=== PATIENT | female | born 1960 | race Two or more races ===

== ENCOUNTER 2023-02-15 21:27 | Inpatient (IN) | payer MEDICAID ==
[~2023-02-15] VITALS: Ht 170.2 cm; Wt 109.1 kg
[~2023-02-15 21:27] MED LIST: CARV6.253; DEXL60CA3 PO; FLUT12AE9; FLUT16SP2 BOTHNARES; GUAI120L55 PO; ONDA-103 PO; PRAV20TA4
[2023-02-15 22:08] LABS: BASOPHILS # (AUTO) 0.1 X10'3 (0-0.2); BASOPHILS % (AUTO) 0.5 % (0-1); EOSINOPHILS # (AUTO) 0.1 X10'3 (0-0.9); EOSINOPHILS % (AUTO) 0.5 % (0-6); HEMATOCRIT 43.9 % (35.0-45.0); HEMOGLOBIN 14.6 g/dl (12.0-16.0); LYMPHOCYTES # (AUTO) 1.5 X10'3 (1.1-4.8); LYMPHOCYTES % (AUTO) 11.5 % (21-51); MEAN CORPUSCULAR HEMOGLOBIN 29.4 PG (27.0-31.0); MEAN CORPUSCULAR HGB CONC 33.4 g/dL (33.0-36.5); MEAN CORPUSCULAR VOLUME 88.3 FL (78-98); MEAN PLATELET VOLUME 7.6 FL (7.4-10.4); MONOCYTES # (AUTO) 0.9 X10'3 (0-0.9); MONOCYTES % (AUTO) 6.9 % (2-12); NEUTROPHILS # (AUTO) 10.2 X10'3 (1.8-7.7); NEUTROPHILS % (AUTO) 80.6 % (42-75); PLATELET COUNT 217 X10'3 (140-440); RED BLOOD COUNT 4.97 X10'6 (4.20-5.60); RED CELL DISTRIBUTION WIDTH 13.7 % (11.5-14.5); WHITE BLOOD COUNT 12.6 X10'3 (4.5-11.0)
[2023-02-15 22:19] LABS: ALANINE AMINOTRANSFERASE 30 U/L (12-78); ALBUMIN 3.4 G/DL (3.4-5.0); ALKALINE PHOSPHATASE 108 IU/L (46-116); ANION GAP 7 (8-16); ASPARTATE AMINO TRANSFERASE 20 U/L (10-37); BILIRUBIN,TOTAL 0.4 MG/DL (0.1-1.0); BLOOD UREA NITROGEN 16 MG/DL (7-18); BUN/CREATININE RATIO 18.2 (10.0-20.0); CALCIUM 9.1 MG/DL (8.5-10.1); CHLORIDE 103 MMOL/L (99-107); CREATININE 0.88 MG/DL (0.40-0.90); GLUCOSE 129 MG/DL (70-104); POTASSIUM 4.2 MMOL/L (3.5-5.1); SODIUM 139 MMOL/L (135-145); TOTAL CARBON DIOXIDE 28.6 MMOL/L (24-32); TOTAL PROTEIN 6.8 G/DL (6.4-8.2); eCRCL 64 ML/MIN; eGFR 65 ML/MIN
[2023-02-15] MEDS ORDERED: methylPREDNISolone sod succ 125mg/2ml vial IV ONE (22:45)
[2023-02-15] MEDS ORDERED: albuterol 2.5 MG/3 ML nebule NEB ONE (22:45)
[2023-02-15] MEDS ORDERED: LORazepam 2 mg/ml vial IV ONE (22:45)
[2023-02-16] MEDS ORDERED: ondansetron/PF 4mg/2ml inj IV ONE ×2 (00:10→04:50)
[2023-02-16 01:02] VITALS: PULSE 109; RESP 22; O2SAT 94
[2023-02-16 01:12] VITALS: PULSE 111; RESP 20; O2SAT 99
[2023-02-16] MEDS ORDERED: morphine 4 MG/ML inj SYRINge IV ONE (04:50)
[2023-02-16] MEDS ORDERED: aspirin 325mg tablet PO ONE (04:50)
[2023-02-16] MEDS ORDERED: nitroGLYCERIN 1gm ointment UD TP ONE (04:50)
--- NOTE | 2023-02-16 07:25 | NUR ---
PT UP AT BEDSIDE COMODE INDEPENDENTLY. AND BACK INTO BED. PT SOB ON EXERTION. SHE STATED SHE IS "WORRIED ABOUT HER CONDITION AND THAT ITS NEVER BEEN THIS HARD TO BREATHE". SHE IS CURRENTLY ON 2L NC WITH RESPIRATIONS AT 14 AND 95% O2 SAT WHILE TALKING ON THE PHONE WITH FAMILY.
[2023-02-16 09:58] LABS: D-DIMER 1.97 MG/L FEU (0-0.50)
[2023-02-16] MEDS ORDERED: mag hydrox/Alum hydrox/simeth 30ml oral suspension PO PRN (10:05)
[2023-02-16] MEDS ORDERED: potassium Cl 40MEQ/1/2NS 520ml 520 ML IV PRN (10:05)
[2023-02-16] MEDS ORDERED: normal saline 1000ml 1,000 ML IV SCH (10:05)
[2023-02-16] MEDS ORDERED: magnesium hydroxide 30ml (MOM) UD suspension PO PRN (10:05)
[2023-02-16] MEDS ORDERED: ondansetron/PF 4mg/2ml inj IV PRN (10:05)
[2023-02-16] MEDS ORDERED: magnesium 4gm in 100ml NS 100 ML IV PRN (10:05)
[2023-02-16] MEDS ORDERED: morphine 2 MG/ML inj. syringe IV PRN (10:05)
[2023-02-16] MEDS ORDERED: HYDROcodone/acetaminophen 10/325mg tab PO PRN (10:05)
[2023-02-16] MEDS ORDERED: magnesium Cl slow-release 64mg tablet PO PRN (10:05)
[2023-02-16] MEDS ORDERED: HYDROcodone/acetaminophen 5mg/325mg tablet PO PRN (10:05)
[2023-02-16] MEDS ORDERED: potassium Cl 20 mEq SR tablet PO PRN ×2 (10:05)
[2023-02-16] MEDS ORDERED: magnesium 2GM in 50ml NS 50 ML IV PRN (10:05)
[2023-02-16] MEDS ORDERED: iohexol 350MG/ML 100ml bottle IV ONE (10:28)
[2023-02-16 11:36] LABS: MAGNESIUM 2.2 MG/DL (1.5-2.4)
[2023-02-16] MEDS: morphine 2 MG/ML inj. syringe IV PRN ×2 (13:09→21:45)
[2023-02-16 14:21] LABS: URINE AMPHETAMINE SCREEN NEGATIVE (Neg); URINE BARBITUATE SCREEN NEGATIVE (Neg); URINE BENZODIAZEPINES SCREEN NEGATIVE (Neg); URINE CANNABINOID SCREEN NEGATIVE (Neg); URINE COCAINE SCREEN NEGATIVE (Neg); URINE METHADONE SCREEN NEGATIVE (Neg); URINE OPIATE SCREEN POSITIVE (Neg); URINE PHENCYCLIDINE SCREEN NEGATIVE (Neg)
--- NOTE | 2023-02-16 15:05 | NUR ---
RESIDENT GAVE A TELEPHONE ORDER FOR A HEART HEALTHY DIET, THIS NURSE WILL INPUT IT.
[2023-02-16] MEDS ORDERED: FLUT12AE9 IH (16:05)
[2023-02-16] MEDS ORDERED: ALBU18HF2 INH (16:09)
[2023-02-16] MEDS ORDERED: ondansetron 4mg rapidly disintigrating tab PO PRN (19:05)
[2023-02-16] MEDS ORDERED: nitroGLYCERIN 0.4mg SUBLingual tab SL PRN (19:20)
[2023-02-16] MEDS ORDERED: metoprolol tartrate 1mg/ml inj IV PRN (19:20)
[2023-02-16] MEDS ORDERED: aminophylline 250mg/10ml inj. IV PRN (19:20)
[2023-02-16] MEDS ORDERED: regadenoson 0.4mg/5ml syringe IV PRN (19:20)
[2023-02-16] MEDS: K and/or MAG REPLACEMENT MC SCH (20:00)
[2023-02-16] MEDS: docusate sod 100mg capsule PO SCH (20:00)
[2023-02-16 21:00] VITALS: BP 115/72; PULSE 99; RESP 16; TEMP 98; O2SAT 96
[2023-02-16] MEDS: budesonide 0.5mg/2ml UD nebule IH SCH (21:00)
[2023-02-16] MEDS: heparin, porcine 5000 units/ml vial SQ SCH (21:44)
[2023-02-16] MEDS ORDERED: CARV6.253 PO (22:37)
[2023-02-16] MEDS ORDERED: LISI5TAB22 PO (22:37)
[2023-02-16] MEDS: albuterol 2.5 MG/3 ML nebule NEB PRN (22:52)
[2023-02-16 22:53] VITALS: PULSE 92; RESP 18; O2SAT 96
[2023-02-16 22:59] VITALS: PULSE 85; RESP 16
[2023-02-17] VITALS (15 sets, daily range): BP systolic 118–166; BP diastolic 44–81; PULSE 91–117; RESP 10–18; TEMP 97.2–98.1; O2SAT 94–97
--- NOTE | 2023-02-17 06:09 | NUR ---
Problems reprioritized. Patient report given, questions answered & plan of care reviewed with Joss YAÑEZ.
--- NOTE | 2023-02-17 06:55 | NUR ---
Patient in room PCU 3018. I have received report from PARI Anthony and had the opportunity to ask questions and assume patient care.
[2023-02-17] MEDS: acetaminophen 325mg tablet PO PRN ×2 (07:41→18:04)
[2023-02-17] MEDS: heparin, porcine 5000 units/ml vial SQ SCH (08:00)
[2023-02-17] MEDS ORDERED: pantoprazole 40mg Tablet.DR PO SCH (08:00)
[2023-02-17] MEDS: K and/or MAG REPLACEMENT MC SCH (08:00)
[2023-02-17] MEDS: docusate sod 100mg capsule PO SCH (08:00)
[2023-02-17 08:48] LABS: BASOPHILS % (AUTO) 0.1 % (0-1); EOSINOPHILS % (AUTO) 0.2 % (0-6); LYMPHOCYTES # (AUTO) 1.8 X10'3 (1.1-4.8); LYMPHOCYTES % (AUTO) 13.5 % (21-51); MEAN CORPUSCULAR HEMOGLOBIN 28.6 PG (27.0-31.0); MEAN CORPUSCULAR HGB CONC 32.5 g/dL (33.0-36.5); MEAN CORPUSCULAR VOLUME 88.2 FL (78-98); MEAN PLATELET VOLUME 7.8 FL (7.4-10.4); MONOCYTES # (AUTO) 0.9 X10'3 (0-0.9); MONOCYTES % (AUTO) 6.6 % (2-12); NEUTROPHILS # (AUTO) 10.9 X10'3 (1.8-7.7); NEUTROPHILS % (AUTO) 79.6 % (42-75); PLATELET COUNT 206 X10'3 (140-440); RED BLOOD COUNT 4.54 X10'6 (4.20-5.60); RED CELL DISTRIBUTION WIDTH 14.1 % (11.5-14.5); WHITE BLOOD COUNT 13.7 X10'3 (4.5-11.0)
[2023-02-17 09:02] LABS: APTT 26 SECONDS (22-32); PROTHROMBIN TIME 10.7 SECONDS (9.0-12.0)
--- NOTE | 2023-02-17 09:08 | NUR ---
Patient down to stress test.
[2023-02-17 09:11] LABS: ALANINE AMINOTRANSFERASE 26 U/L (12-78); ALBUMIN 2.9 G/DL (3.4-5.0); ALBUMIN/GLOBULIN RATIO 0.9 (1.1-1.5); ALKALINE PHOSPHATASE 75 IU/L (46-116); ANION GAP 5 (8-16); ASPARTATE AMINO TRANSFERASE 16 U/L (10-37); BILIRUBIN,TOTAL 0.3 MG/DL (0.1-1.0); BLOOD UREA NITROGEN 21 MG/DL (7-18); BUN/CREATININE RATIO 25.3 (10.0-20.0); CALCIUM 8.6 MG/DL (8.5-10.1); CHLORIDE 106 MMOL/L (99-107); CHOL/HDL RATIO 3.2 (0.00-4.99); CHOLESTEROL 147 MG/DL (0-200); CREATININE 0.83 MG/DL (0.40-0.90); GLUCOSE 107 MG/DL (70-104); HDL CHOLESTEROL 46 MG/DL (35-60); LDL CHOLESTEROL 84 MG/DL (50-100); MAGNESIUM 2.2 MG/DL (1.5-2.4); PHOSPHORUS 2.9 MG/DL (2.3-4.5); POTASSIUM 3.7 MMOL/L (3.5-5.1); SODIUM 141 MMOL/L (135-145); TOTAL CARBON DIOXIDE 29.6 MMOL/L (24-32); TRIGLYCERIDES 75 MG/DL (20-135); eCRCL 67 ML/MIN; eGFR 69 ML/MIN
[2023-02-17] MEDS: budesonide 0.5mg/2ml UD nebule IH SCH (10:51)
--- NOTE | 2023-02-17 11:15 | NUR ---
patient back to room
[2023-02-17] MEDS: morphine 2 MG/ML inj. syringe IV PRN (11:22)
[2023-02-17] MEDS ORDERED: PRED10TA23 PO (13:41)
[2023-02-17] MEDS: albuterol 2.5 MG/3 ML nebule NEB PRN (14:04)
[2023-02-17] MEDS ORDERED: GUAI-647 PO (16:08)
[2023-02-17 16:16] LABS: BILIRUBIN,URINE NEGATIVE (Neg); CLARITY,URINE CLEAR (Clear); COLOR,URINE YELLOW (Yellow); GLUCOSE, URINE NEGATIVE (Neg); KETONES,URINE NEGATIVE (Neg); LEUKOCYTE ESTERASE ,URINE NEGATIVE (Neg); NITRITES, URINE NEGATIVE (Neg); OCCULT BLOOD,URINE TRACE-INTACT (Neg); PROTEIN,URINE NEGATIVE (Neg); UROBILINOGEN,URINE 0.2 E.U/dL (0.2-1.0)
--- NOTE | 2023-02-17 16:22 | NUR ---
Resident Inderjitam in to see patient.
[2023-02-17 16:23] LABS: UA COLLECTION TYPE NON-SPECIFIED
[2023-02-17 16:25] LABS: BACTERIA,URINE NONE SEEN /HPF (Neg); MUCUS STRANDS FEW /LPF (Neg); SQUAMOUS EPITHELIAL CELL,UR FEW /LPF (FEW); WBC,URINE 0-4 /HPF (0-4)
[2023-02-17] MEDS ORDERED: FLUT1DIS INH (16:32)
[2023-02-17] MEDS ORDERED: MONT4TAB70 PO (16:32)
--- NOTE | 2023-02-17 18:34 | NUR ---
Patient alert and oriented in no apparent acute distress. Discussed with patient discharge instructions and new prescriptions. Dr Shelley was in to explain discharge medications as well. Patient verbalizes understanding of teaching and all questions answered. Patient wanted medical records sent to her PCP. patient given medical release form to fill out. Patient ready for dc and waiting for her daughter for ride home.
--- NOTE | 2023-02-17 18:36 | NUR ---
Problems reprioritized. Patient report given, questions answered & plan of care reviewed with PARI Hennessy.
--- NOTE | 2023-02-17 18:37 | NUR ---
Problems reprioritized. Patient report given, questions answered & plan of care reviewed with PARI Hennessy.
== END 2023-02-17 19:05 | disposition home or self-care (01) | DRG 145 ==
LOC: ER 21:27 → ED HOLD 02-16 10:52 → PCU 3S 02-16 20:50
PROVIDERS: ADMIT Family Medicine; ATTEND Family Medicine
PROC: B32T1ZZ Computerized Tomography (CT Scan) of Left Pulmonary Artery using Low Osmolar Contrast (ICD-10-PCS; principal; 2023-02-16)
PROC: B3201ZZ Computerized Tomography (CT Scan) of Thoracic Aorta using Low Osmolar Contrast (ICD-10-PCS; 2023-02-16)
PROC: B32S1ZZ Computerized Tomography (CT Scan) of Right Pulmonary Artery using Low Osmolar Contrast (ICD-10-PCS; 2023-02-16)
PROC: 4A02XM4 Measurement of Cardiac Total Activity, External Approach (ICD-10-PCS; 2023-02-17)
PROC: 3E033HZ Introduction of Radioactive Substance into Peripheral Vein, Percutaneous Approach (ICD-10-PCS; 2023-02-17)
DX: J20.8 Acute bronchitis due to other specified organisms (principal); J96.01 Acute respiratory failure with hypoxia; R65.10 Systemic inflammatory response syndrome (SIRS) of non-infectious origin without acute organ dysfunction; I11.0 Hypertensive heart disease with heart failure; J45.901 Unspecified asthma with (acute) exacerbation; Z20.822 Contact with and (suspected) exposure to COVID-19; I50.9 Heart failure, unspecified; K21.9 Gastro-esophageal reflux disease without esophagitis; R07.9 Chest pain, unspecified; Z88.8 Allergy status to other drugs, medicaments and biological substances; Z90.49 Acquired absence of other specified parts of digestive tract
CPT/HCPCS: 36415; 71045; 71275; 78452; 80053; 80061; 80305; 81001; 83036; 83605; 83735; 83880; 84100; 84132; 84145; 84484; 85025; 85379; 85610; 85730; 87040; 87502; 87503; 87811; 93017; 93306; 94060; 94640; 94760; 99285; A9500; G0378; J1644; J2060; J2270; J2405; J2785; J2930; J3490; J7030; Q9967

== ENCOUNTER 2024-02-12 11:20 | Emergency (ER) | payer MEDICAID ==
[~2024-02-12] VITALS: Ht 170.2 cm; Wt 121.2 kg
[~2024-02-12 11:20] MED LIST changes: +ALBU18HF2 INH; -CARV6.253; +CARV6.253 PO; -FLUT12AE9; -FLUT16SP2 BOTHNARES; +FLUT1DIS INH; -GUAI120L55 PO; +LISI5TAB22 PO; +MONT4TAB70 PO; -PRAV20TA4
[2024-02-12 11:24] VITALS: TEMP 97.3
[2024-02-12 12:23] LABS: BASOPHILS # (AUTO) 0.1 X10'3 (0-0.2); BASOPHILS % (AUTO) 0.7 % (0-1); EOSINOPHILS # (AUTO) 0.1 X10'3 (0-0.9); EOSINOPHILS % (AUTO) 0.7 % (0-6); HEMATOCRIT 48.7 % (35.0-45.0); HEMOGLOBIN 16.3 g/dl (12.0-16.0); LYMPHOCYTES # (AUTO) 1.9 X10'3 (1.1-4.8); LYMPHOCYTES % (AUTO) 22.3 % (21-51); MEAN CORPUSCULAR HGB CONC 33.5 g/dL (33.0-36.5); MEAN CORPUSCULAR VOLUME 89.3 FL (78-98); MEAN PLATELET VOLUME 7.7 FL (7.4-10.4); MONOCYTES # (AUTO) 0.6 X10'3 (0-0.9); MONOCYTES % (AUTO) 7.4 % (2-12); NEUTROPHILS # (AUTO) 5.9 X10'3 (1.8-7.7); NEUTROPHILS % (AUTO) 68.9 % (42-75); PLATELET COUNT 259 X10'3 (140-440); RED BLOOD COUNT 5.45 X10'6 (4.20-5.60); RED CELL DISTRIBUTION WIDTH 13.5 % (11.5-14.5); WHITE BLOOD COUNT 8.6 X10'3 (4.5-11.0)
[2024-02-12 12:28] LABS: ALANINE AMINOTRANSFERASE 43 U/L (12-78); ALBUMIN 3.3 G/DL (3.4-5.0); ALBUMIN/GLOBULIN RATIO 0.9 (1.1-1.5); ALKALINE PHOSPHATASE 114 IU/L (46-116); ANION GAP 5 (8-16); ASPARTATE AMINO TRANSFERASE 35 U/L (10-37); BILIRUBIN,TOTAL 0.6 MG/DL (0.1-1.0); BLOOD UREA NITROGEN 12 MG/DL (7-18); BUN/CREATININE RATIO 13.8 (10.0-20.0); CALCIUM 8.8 MG/DL (8.5-10.1); CHLORIDE 102 MMOL/L (99-107); CREATININE 0.87 MG/DL (0.40-0.90); GLUCOSE 121 MG/DL (70-104); LIPASE 42 U/L (16-77); SODIUM 136 MMOL/L (135-145); TOTAL CARBON DIOXIDE 29.3 MMOL/L (24-32); eCRCL 64 ML/MIN; eGFR 66 ML/MIN
[2024-02-12] MEDS: HYDROmorphone 1 mg/ml syringe IV ONE (12:51)
[2024-02-12] MEDS: pantoprazole 40 MG vial IV STA (12:51)
[2024-02-12] MEDS: ondansetron/PF 4mg/2ml inj IV ONE (12:51)
[2024-02-12 13:10] LABS: BILIRUBIN,URINE NEGATIVE (Neg); CLARITY,URINE CLEAR (Clear); COLOR,URINE YELLOW (Yellow); GLUCOSE, URINE NEGATIVE (Neg); KETONES,URINE NEGATIVE (Neg); LEUKOCYTE ESTERASE ,URINE NEGATIVE (Neg); NITRITES, URINE NEGATIVE (Neg); OCCULT BLOOD,URINE NEGATIVE (Neg); PROTEIN,URINE NEGATIVE (Neg); UROBILINOGEN,URINE 0.2 E.U/dL (0.2-1.0)
[2024-02-12 13:16] LABS: UA COLLECTION TYPE CLN CATCH MIDSTREAM
[2024-02-12] MEDS ORDERED: HYDROmorphone 1 mg/ml syringe IV ONE (14:20)
[2024-02-12 14:32] VITALS: BP 115/79; PULSE 78; RESP 16; O2SAT 99
== END 2024-02-12 14:34 | disposition home or self-care (01) ==
LOC: ER 11:20
DX: R10.13 Epigastric pain (principal); R11.2 Nausea with vomiting, unspecified; K52.89 Other specified noninfective gastroenteritis and colitis; I10 Essential (primary) hypertension; J45.909 Unspecified asthma, uncomplicated; K21.9 Gastro-esophageal reflux disease without esophagitis; F41.9 Anxiety disorder, unspecified; G89.29 Other chronic pain; M54.9 Dorsalgia, unspecified; Z88.8 Allergy status to other drugs, medicaments and biological substances; Z79.899 Other long term (current) drug therapy
CPT/HCPCS: 36415; 80053; 81003; 83690; 85025; 96374; 96375; 99284; J1171; J2405; J2470

== ENCOUNTER 2024-10-28 12:06 | Emergency (ER) | payer MEDICARE, MEDICAID ==
[~2024-10-28] VITALS: Ht 170.2 cm; Wt 122.3 kg
[2024-10-28] MEDS ORDERED: HYDR-3965 PO (12:57)
--- NOTE | 2024-10-28 13:23 | Physician Documentation ---
History of Present Illness ~ Chief Complaint: Headache Stated Complaint: "SHARP PAIN ON SIDE OF HEAD" Time Seen by MD: 12:29 Primary Medical Doctor: OVELMA Mode of Arrival: SHARIFA HPI 64-year-old female presents to the ED with a complaint of left-sided neck pain and had pain along with a headache and ongoing sinus problems. She states she has a history of sinusitis. States that her symptoms recently have been going for more than two weeks now. Reports ongoing congestion headache and nasal discharge. Day of Onset: Oct 28, 2024 Medication Reconciliation Allergies: Coded Allergies: prochlorperazine (Unverified Allergy, Mild, 10/28/24) diazepam (Verified Allergy, Unknown, 02/12/24) Scheduled Albuterol Sulfate (Ventolin Hfa), 2 PUFFS INH Q4HPRN, (Reported) Amox Tr/Potassium Clavulanate (Augmentin 875-125 Tablet), 1 TAB PO Q12H Carvedilol (Carvedilol), 1 TAB PO BID Dexlansoprazole (Dexilant), 1 CAP PO DAILY, (Reported) Fluticasone/Salmeterol (Advair 100-50 Diskus), 2 PUFFS INH Q12H Lisinopril (Lisinopril), 1 TAB PO DAILY, (Reported) Montelukast Sodium (Singulair), 1 TAB PO DAILY Prednisone (Prednisone), 1 TAB PO BID Scheduled PRN Hydrocodone Bit/Acetaminophen 5/325 MG ([place] 5/325 MG), 1 TAB PO BID PRN for pain, (Reported) Ondansetron HCl (Ondansetron HCl), 1 TAB PO DAILY PRN for nausea/vomiting, (Reported) Past Medical History Past Medical History: Hypertension, Asthma, Anxiety Past Surgical History: no surgical history Alcohol Use: None Drug Use: none Lives with: Family Lives In: Home Physical Exam Vital Signs: Temperature: 97.2, Source: Temporal, Heart Rate: 80, Respiratory Rate: 18, BP: 136/78, Pulse Oximetry: 96, Weight: 122.350 Oxygen Flow Rate: 0 Progress Results/Orders Results/Orders Completed Orders - NATHEN SALAMANCA STACKING MACHINE OPERATOR Stat Ekg (10/28/24 ) Vital Signs 10/28/24 10/28/24 10/28/24 12:10 12:55 14:39 Temp 97.2 97.8 Pulse 101 80 70 Resp 20 18 16 B/P (MAP) 141/84 136/78 (97) 144/72 Pulse Ox 94 96 98 O2 Flow Rate 0 Departure Disposition: 01 HOME / SELF CARE / HOMELESS Impression: Primary Impression: Headache Additional Impression: Bacterial sinusitis Condition: Stable Discharge Instructions: Bacterial Conjunctivitis, Adult, Wjan-[id number], Sinus Infection, Adult Referrals: NO PRIMARY CARE PROVIDER (PCP) Prescriptions Amox Tr/Potassium Clavulanate (Augmentin 875-125 Tablet) 1 Each Tablet 1 TAB PO Q12H for 10 Days, #20 TAB Prov: NATHEN SALAMANCA STACKING MACHINE OPERATOR 10/28/24 Prednisone (Prednisone) 10 Mg Tablet 1 TAB PO BID for 5 Days, #10 TAB Prov: NATHEN SALAMANCA STACKING MACHINE OPERATOR 10/28/24 Education Educated: Patient Educated regarding: diagnosis Signature Scribe Signature: f Attestation: Scribed for Nathen Salamanca Manager Sterile by Nathen Mccoy NP . 10/28/24 18:31 NATHEN SALAMANCA NP Oct 28, 2024 13:23
[2024-10-28] MEDS ORDERED: AMOX-117 PO (13:53)
[2024-10-28] MEDS ORDERED: PRED10TA23 PO (13:53)
[2024-10-28 14:39] VITALS: BP 144/72; PULSE 70; RESP 16; TEMP 97.8; O2SAT 98
--- NOTE | 2024-10-28 16:38 | ELECTROCARDIOGRAPH REPORT ---
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 Virgilio Espinal Measurements Intervals [place] Rate: 76 P: 43 MI: 119 QRS: 47 QRSD: 94 T: 46 QT: 370 QTc: 417 Interpretive Statements Sinus rhythm Multiple ventricular premature complexes Borderline short MI interval Low voltage, precordial leads Electronically Signed On 10-30-2024 19:15:[address] Virgilio Espinal Please click the below link to view image of tracing.
== END 2024-10-28 14:40 | disposition home or self-care (01) ==
LOC: ER 12:06
DX: J32.9 Chronic sinusitis, unspecified (principal); B96.89 Other specified bacterial agents as the cause of diseases classified elsewhere; M54.2 Cervicalgia; R51.9 Headache, unspecified; I10 Essential (primary) hypertension; J45.909 Unspecified asthma, uncomplicated; F41.9 Anxiety disorder, unspecified; Z88.8 Allergy status to other drugs, medicaments and biological substances; Z79.899 Other long term (current) drug therapy
CPT/HCPCS: 93005; 99283